=== PATIENT | male | born 1985 | race Caucasian/White ===

== ENCOUNTER 2022-05-03 23:56 | Emergency (ER) | payer OTHER ==
[~2022-05-03] VITALS: Ht 182.9 cm; Wt 90.0 kg
[2022-05-04] MEDS ORDERED: SODIUM CHLORIDE 0.9% 1,000 ML IV ONE (00:15)
[2022-05-04] MEDS ORDERED: LEVETIRACETAM 500MG TABLET PO ONE (00:15)
[2022-05-04 00:26] LABS: BASOPHILS % 0.7 % (0.0-2.0); EOSINOPHILS % 1.3 % (0.0-5.0); HEMOGLOBIN. 15.3 g/dL (14.0-18.0); LYMPHOCYTES % 27.8 % (20.0-50.0); MEAN CORPUSCULAR HEMOGLOBIN 30.6 pg (28.0-32.0); MEAN CORPUSCULAR VOLUME 89.8 fL (80.0-94.0); MEAN PLATELET VOLUME 7.6 fl (7.4-10.4); MONOCYTES % 9.6 % (2.0-8.0); NEUTROPHILS % 60.6 % (40.0-76.0); PLATELET 260 x1000/uL (130-400); RED BLOOD CELL COUNT 5.01 mill/uL (4.7-6.1); RED CELL DISTRIBUTION WIDTH 12.7 % (11.6-14.6)
[2022-05-04 00:35] LABS: CHLORIDE 103 mEq/L (98-107)
[2022-05-04 00:44] LABS: ETHANOL BLOOD < 10 mg/dL
[2022-05-04 02:26] VITALS: BP 121/74
== END 2022-05-04 02:45 | disposition home or self-care (01) ==
LOC: ER 05-04 00:28
DX: G40.909 Epilepsy, unspecified, not intractable, without status epilepticus (principal); R09.02 Hypoxemia; R00.0 Tachycardia, unspecified; R03.0 Elevated blood-pressure reading, without diagnosis of hypertension; R94.31 Abnormal electrocardiogram [ECG] [EKG]
CPT/HCPCS: 36415; 80053; 80320; 84484; 85025; 93005; 96360; 99284; J7030; G0480

== ENCOUNTER 2022-12-23 06:31 | Inpatient (IN) | payer MEDICAID, OTHER ==
[~2022-12-23] VITALS: Ht 177.8 cm; Wt 102.1 kg
[2022-12-23] MEDS ORDERED: ONDANSETRON HCL 4MG/2ML INJ IV STA (09:57)
[2022-12-23] MEDS ORDERED: SODIUM CHLORIDE 0.9% 1,000 ML IV ONE (10:00)
[2022-12-23] MEDS ORDERED: IBUPROFEN 600MG TABLET PO ONE (10:00)
[2022-12-23 10:55] LABS: HEMOGLOBIN. 16.7 g/dL (14.0-18.0); MEAN CORPUSCULAR HEMOGLOBIN 30.1 pg (28.0-32.0); MEAN PLATELET VOLUME 7.8 fl (7.4-10.4); PLATELET 279 x1000/uL (130-400); RED BLOOD CELL COUNT 5.55 mill/uL (4.7-6.1); RED CELL DISTRIBUTION WIDTH 13.4 % (11.6-14.6)
[2022-12-23 11:01] LABS: CHLORIDE 102 mEq/L (98-107)
[2022-12-23 12:05] LABS: PLATELET ESTIMATE NORMAL
[2022-12-23] MEDS ORDERED: KETOROLAC 30MG/ML VIAL IV NR (13:00)
[2022-12-23] MEDS ORDERED: CEFTRIAXONE 1GM PREMIX 50 ML IV ONE (14:45)
[2022-12-23] MEDS ORDERED: MORPHINE SULFATE 4 MG/ML CPJ (NOT FOR IM USE) IV ONE (14:45)
[2022-12-23] MEDS ORDERED: FAMOTIDINE 20MG/2ML VIAL IV ONE (14:45)
[2022-12-23 16:02] LABS: CLARITY URINE TURBID (CLEAR); COLOR URINE YELLOW (YELLOW); KETONES URINE TRACE (NEGATIVE); LEUKOCYTE ESTERASE URINE NEGATIVE (NEGATIVE); NITRITE URINE NEGATIVE (NEGATIVE); OCCULT BLOOD URINE NEGATIVE (NEGATIVE); PH URINE 5.5 (4.5-8.0); PROTEIN URINE NEGATIVE (NEGATIVE); SPECIFIC GRAVITY URINE 1.028 (1.005-1.030); UROBILINOGEN URINE 0.2 E.U./dL (0.2-1.0)
[2022-12-23] MEDS ORDERED: ACETAMINOPHEN 325MG TABLET PO NR (17:00)
[2022-12-23] MEDS ORDERED: OSELTAMIVIR 75MG CAPSULE PO ONE (18:45)
[2022-12-23] MEDS ORDERED: MAGNESIUM/ALUMINUM HYDROXIDE/SIMETHICONE 30ML UDC PO PRN (19:00)
[2022-12-23] MEDS ORDERED: ONDANSETRON HCL 4MG/2ML INJ IV PRN (19:00)
[2022-12-23] MEDS ORDERED: SODIUM CHLORIDE 0.9% 1000ML BAG (SEPSIS BOLUS) IV ONE (19:00)
[2022-12-23] MEDS ORDERED: GUAIFENESIN 200MG/10ML SUGAR FREE UDC PO PRN (19:00)
[2022-12-23] MEDS ORDERED: NA PHOS,M-B/NA PHOS,DI-BA ENEMA 118ML PR PRN (19:00)
[2022-12-23] MEDS ORDERED: IPRATROPIUM/ALBUTEROL 0.5-3(2.5)MG/3ML NEB NEB PRN (19:00)
[2022-12-23] MEDS ORDERED: ACETAMINOPHEN 325MG TABLET PO PRN (19:00)
[2022-12-23] MEDS ORDERED: NITROGLYCERIN 0.4MG TABLET SL SL PRN (19:00)
[2022-12-23] MEDS ORDERED: ZOLPIDEM TARTRATE 5MG TABLET PO PRN (19:00)
[2022-12-23] MEDS ORDERED: CLONIDINE 0.1MG TABLET PO PRN (19:00)
[2022-12-23 19:46] LABS: ETHANOL BLOOD < 10 mg/dL; HDL CHOLESTEROL 47 mg/dL (40-59); LDL CHOLESTEROL 214 mg/dL (5-100); T4 FREE 0.98 ng/dL (0.76-1.46); TOTAL IRON BINDING CAPACITY 313 ug/dL (250-450)
[2022-12-23] MEDS ORDERED: AZITHROMYCIN 500 MG in DEXT 5% WATER 250 ML IV SCH (20:00)
[2022-12-23 20:02] LABS: *AMPHETAMINES SCREEN URINE NEGATIVE (NEGATIVE); *BARBITURATES SCREEN URINE NEGATIVE (NEGATIVE); *BENZODIAZEPINES SCREEN URINE NEGATIVE (NEGATIVE); *COCAINE SCREEN URINE NEGATIVE (NEGATIVE); CANNABINOID URINE SCREEN NEGATIVE (NEGATIVE); METHADONE URINE SCREEN NEGATIVE (NEGATIVE); OPIATES URINE SCREEN NEGATIVE (NEGATIVE); PHENCYCLIDINE URINE SCREEN NEGATIVE (NEGATIVE)
[2022-12-23 20:22] LABS: FOLIC ACID (FOLATE) SERUM 16.3 ng/mL (>5.38)
[2022-12-23] MEDS: ENOXAPARIN 40MG/0.4ML SYR SUBCUT SCH (20:56)
[2022-12-23] MEDS: FAMOTIDINE 20MG TABLET PO SCH (21:00)
[2022-12-23] MEDS: ASCORBIC ACID 500 MG TABLET PO SCH (21:00)
[2022-12-23 23:33] VITALS: BP 142/87
[2022-12-23] MEDS: ACETAMINOPHEN 325MG TABLET PO PRN (23:57)
[2022-12-24] VITALS (7 sets, daily range): BP systolic 101–142; BP diastolic 57–87
[2022-12-24] MEDS ORDERED: DIVA-18 MT (04:40)
[2022-12-24] MEDS ORDERED: LEVE500T9 MT (04:40)
[2022-12-24] MEDS: KETOROLAC 15MG/ML VIAL IV PRN ×2 (05:05→11:31)
[2022-12-24 06:23] LABS: BASOPHILS % 0.2 % (0.0-2.0); HEMATOCRIT. 41.4 % (42.0-52.0); HEMOGLOBIN. 14.1 g/dL (14.0-18.0); LYMPHOCYTES % 12.5 % (20.0-50.0); MEAN CORPUSCULAR HEMOGLOBIN 30.6 pg (28.0-32.0); MEAN CORPUSCULAR VOLUME 90.1 fL (80.0-94.0); MEAN PLATELET VOLUME 7.6 fl (7.4-10.4); MONOCYTES % 9.4 % (2.0-8.0); NEUTROPHILS % 77.9 % (40.0-76.0); PLATELET 199 x1000/uL (130-400); RED CELL DISTRIBUTION WIDTH 13.1 % (11.6-14.6)
[2022-12-24 07:04] LABS: HEPATITIS B SURFACE ANTIGEN NEGATIVE
[2022-12-24] MEDS: LEVETIRACETAM 250MG TABLET PO SCH ×2 (08:54→20:48)
[2022-12-24] MEDS: DOCUSATE SODIUM 100MG CAPSULE PO PRN ×2 (08:54→16:40)
[2022-12-24] MEDS: FAMOTIDINE 20MG TABLET PO SCH ×2 (08:55→20:47)
[2022-12-24] MEDS: ASCORBIC ACID 500 MG TABLET PO SCH ×2 (08:55→20:48)
[2022-12-24] MEDS: ZINC SULFATE 220 MG ( 50 ) CAPSULE PO SCH (08:55)
[2022-12-24] MEDS ORDERED: PNEUMOCOCCAL 23-VAL P-SAC VAC 0.5 ML IM ONE (09:00)
[2022-12-24] MEDS ORDERED: INFLUENZA VACCINE 05/PF 0.5 ML SYRINGE IM ONE (09:00)
[2022-12-24] MEDS: ACETAMINOPHEN 325MG TABLET PO PRN (09:02)
[2022-12-24] MEDS: VALPROIC ACID 250MG CAPSULE PO SCH ×2 (09:03→20:47)
[2022-12-24 10:48] LABS: CHLORIDE 106 mEq/L (98-107)
[2022-12-24 11:07] LABS: PHOSPHORUS 2.7 mg/dL (2.5-4.9)
[2022-12-24] MEDS: DEXAMETHASONE 4MG TABLET PO SCH (11:31)
[2022-12-24] MEDS ORDERED: CEFTRIAXONE 1,000 MG in DEXTROSE 5% WATER 50 ML IV SCH (16:00)
[2022-12-24] MEDS: CEFTRIAXONE 1,000 MG in DEXTROSE 5% WATER 50 ML IV SCH (16:46)
[2022-12-24] MEDS: AZITHROMYCIN 500 MG in DEXT 5% WATER 250 ML IV SCH (18:11)
[2022-12-24] MEDS: ENOXAPARIN 40MG/0.4ML SYR SUBCUT SCH (20:16)
[2022-12-25] VITALS: BP 142/84
[2022-12-25 04:04] VITALS: BP 112/70
[2022-12-25 08:00] VITALS: BP 108/69
[2022-12-25] MEDS: VALPROIC ACID 250MG CAPSULE PO SCH ×2 (09:12→21:31)
[2022-12-25] MEDS: LEVETIRACETAM 250MG TABLET PO SCH ×2 (09:12→21:31)
[2022-12-25] MEDS: DEXAMETHASONE 4MG TABLET PO SCH (09:12)
[2022-12-25] MEDS: ASCORBIC ACID 500 MG TABLET PO SCH ×2 (09:12→21:32)
[2022-12-25] MEDS: FAMOTIDINE 20MG TABLET PO SCH ×2 (09:12→21:31)
[2022-12-25] MEDS: ZINC SULFATE 220 MG ( 50 ) CAPSULE PO SCH (09:12)
[2022-12-25 12:00] VITALS: BP 132/73
[2022-12-25 16:23] VITALS: BP 129/67
[2022-12-25] MEDS: CEFTRIAXONE 1,000 MG in DEXTROSE 5% WATER 50 ML IV SCH (16:49)
[2022-12-25] MEDS: AZITHROMYCIN 500 MG in DEXT 5% WATER 250 ML IV SCH (17:45)
[2022-12-25] MEDS: ENOXAPARIN 30MG/0.3ML SYR SUBCUT SCH (17:45)
[2022-12-25 19:30] VITALS: BP 122/77
[2022-12-26] VITALS: BP 130/84
[2022-12-26 04:00] VITALS: BP 127/77
[2022-12-26] MEDS: ENOXAPARIN 30MG/0.3ML SYR SUBCUT SCH (05:42)
[2022-12-26 08:00] VITALS: BP 134/81
[2022-12-26] MEDS ORDERED: AMOX1TAB16 MT (08:14)
[2022-12-26] MEDS: DOCUSATE SODIUM 100MG CAPSULE PO PRN (08:59)
[2022-12-26] MEDS: LEVETIRACETAM 250MG TABLET PO SCH (08:59)
[2022-12-26] MEDS: ASCORBIC ACID 500 MG TABLET PO SCH (08:59)
[2022-12-26] MEDS: VALPROIC ACID 250MG CAPSULE PO SCH (08:59)
[2022-12-26] MEDS: FAMOTIDINE 20MG TABLET PO SCH (08:59)
[2022-12-26] MEDS: ZINC SULFATE 220 MG ( 50 ) CAPSULE PO SCH (08:59)
[2022-12-26] MEDS: DEXAMETHASONE 4MG TABLET PO SCH (09:00)
[2022-12-26] MEDS ORDERED: FAMOTIDINE 20MG TABLET PO SCH (09:00)
[2022-12-26 10:22] VITALS: BP 134/81
== END 2022-12-26 12:32 | disposition home or self-care (01) | DRG 720 ==
LOC: ER 06:31 → MICUSO 18:40 → EDBEDREQTM 18:42 → EDBEDREQ 18:42 → 3WST 23:23
PROVIDERS: ADMIT Internal Medicine; ATTEND Internal Medicine
DX: A41.9 Sepsis, unspecified organism (principal); E78.5 Hyperlipidemia, unspecified; G40.909 Epilepsy, unspecified, not intractable, without status epilepticus; Z20.822 Contact with and (suspected) exposure to COVID-19; R10.84 Generalized abdominal pain; R73.9 Hyperglycemia, unspecified; Z79.899 Other long term (current) drug therapy; Z82.49 Family history of ischemic heart disease and other diseases of the circulatory system; J02.9 Acute pharyngitis, unspecified
CPT/HCPCS: 36415; 71045; 74176; 80053; 80061; 80305; 80320; 81003; 82607; 82746; 83036; 83540; 83550; 83605; 83735; 84100; 84145; 84439; 84443; 85025; 86803; 87070; 87340; 87426; 87430; 87804; 90686; 90732; 93005; 93306; 93970; 99291; C9803; J0456; J0696; J1650; J1885; J2270; J2405; J3490; J7030; J7060; J8540; G0480

== ENCOUNTER 2023-08-04 19:05 | Emergency (ER) | payer MEDICAID ==
[~2023-08-04] VITALS: Ht 182.9 cm; Wt 92.6 kg
[~2023-08-04 19:05] MED LIST: AMOX1TAB16 MT; DIVA-18 MT; LEVE500T9 MT
[2023-08-04 19:15] VITALS: BP 138/107; O2SAT 95
[2023-08-04] MEDS ORDERED: ONDANSETRON HCL 4MG/2ML INJ IV STA (19:26)
[2023-08-04] MEDS ORDERED: SODIUM CHLORIDE 0.9% 1,000 ML IV ONE (19:30)
[2023-08-04 19:51] LABS: BASOPHILS % 0.6 % (0.0-2.0); EOSINOPHILS % 2.5 % (0.0-5.0); HEMATOCRIT. 49.5 % (42.0-52.0); HEMOGLOBIN. 16.8 g/dL (14.0-18.0); LYMPHOCYTES % 36.1 % (20.0-50.0); MEAN CORPUSCULAR VOLUME 88.4 fL (80.0-94.0); MEAN PLATELET VOLUME 7.5 fl (7.4-10.4); MONOCYTES % 9.2 % (2.0-8.0); NEUTROPHILS % 51.6 % (40.0-76.0); PLATELET 276 x1000/uL (130-400); RED CELL DISTRIBUTION WIDTH 12.7 % (11.6-14.6); WHITE BLOOD COUNT 6.2 x1000/uL (4.5-11.0)
[2023-08-04 19:55] LABS: DIFFERENTIAL COMMENT 1
[2023-08-04 19:57] LABS: CHLORIDE 102 mEq/L (98-107); INDEX HEMOLYSI 1 (1-3); INDEX ICTERIC 1 (1-4); INDEX LIPEMIC 1 (1-3); POTASSIUM 4.2 mEq/L (3.5-5.1); SODIUM 138 mEq/L (136-145)
[2023-08-04 20:06] LABS: ALANINE AMINOTRANSFERASE 69 IU/L (13-61); ALBUMIN 4.3 g/dL (3.4-5.0); ASPARTATE AMINOTRANSFERASE 34 IU/L (15-37); BILIRUBIN TOTAL 0.4 mg/dL (0.1-1.0); CALCIUM 10.1 mg/dL (8.5-10.1); CARBON DIOXIDE 30 mEq/L (21-32); CREATININE 1.1 mg/dL (0.6-1.3); GLUCOSE 101 mg/dL (70-105); PROTEIN TOTAL 8.4 g/dL (6.0-8.3); UREA NITROGEN BLOOD 17 mg/dL (7-21)
[2023-08-04 20:12] LABS: VALPROIC ACID < 3.0 ug/mL (50-100)
[2023-08-04 22:22] LABS: CLARITY URINE TURBID (CLEAR); COLOR URINE YELLOW (YELLOW); GLUCOSE URINE NEGATIVE (NEGATIVE); KETONES URINE NEGATIVE (NEGATIVE); LEUKOCYTE ESTERASE URINE NEGATIVE (NEGATIVE); NITRITE URINE NEGATIVE (NEGATIVE); OCCULT BLOOD URINE NEGATIVE (NEGATIVE); PH URINE 7.5 (4.5-8.0); PROTEIN URINE NEGATIVE (NEGATIVE); SPECIFIC GRAVITY URINE 1.019 (1.005-1.030); UROBILINOGEN URINE 0.2 E.U./dL (0.2-1.0)
[2023-08-04 22:25] LABS: BACTERIA URINE NONE SEEN; RBC URINE NONE SEEN /hpf (0-2); YEAST URINE NONE SEEN
[2023-08-04 22:49] LABS: SQUAMOUS EPITHELIAL CELL URINE RARE /lpf (RARE/1+)
[2023-08-04 22:50] LABS: AMORPHOUS SEDIMENT URINE 2+ /lpf; WBC URINE 0-2 /hpf (0-2)
[2023-08-05] MEDS ORDERED: ONDA4TAB50 MT (00:14)
[2023-08-05] MEDS ORDERED: OMEP40CA20 MT (00:14)
[2023-08-05] MEDS ORDERED: LEVETIRACETAM 500MG PREMIX 100 ML IV ONE (00:15)
[2023-08-05] MEDS ORDERED: VALPROATE SODIUM 1,000 MG in DEXT 5% WATER 100 ML IV ONE (00:15)
[2023-08-05] MEDS ORDERED: ONDANSETRON HCL 4MG/2ML INJ IV NR (00:30)
[2023-08-05 03:55] VITALS: PULSE 84; RESP 16; TEMP 98.2
== END 2023-08-05 03:57 | disposition home or self-care (01) ==
LOC: ER 19:05
DX: G40.909 Epilepsy, unspecified, not intractable, without status epilepticus (principal); R11.2 Nausea with vomiting, unspecified; R10.9 Unspecified abdominal pain
CPT/HCPCS: 80053; 81003; 83690; 80165; 85025; 36415; 74176; 93005; 99285; 96367; 96365; 96375; J7030; J1953; J2405; J3490; J7060; Z7610 ×2

== ENCOUNTER 2024-12-08 01:38 | Emergency (ER) | payer MEDICAID, OTHER ==
[~2024-12-08] VITALS: Ht 182.9 cm; Wt 82.0 kg
[~2024-12-08 01:38] MED LIST changes: +OMEP40CA20 MT; +ONDA4TAB50 MT
[2024-12-08 01:40] VITALS: O2SAT 95
[2024-12-08] MEDS: SODIUM CHLORIDE 0.9% 1,000 ML IV ONE ×2 (02:34)
[2024-12-08] MEDS: ACETAMINOPHEN 325MG TABLET PO STA (02:34)
[2024-12-08 03:06] LABS: BASOPHILS % 0.2 % (0.0-2.0); EOSINOPHILS % 0.5 % (0.0-5.0); HEMATOCRIT. 45.1 % (42.0-52.0); HEMOGLOBIN. 15.3 g/dL (14.0-18.0); LYMPHOCYTES % 9.5 % (20.0-50.0); MEAN CORPUSCULAR HEMOGLOBIN 30.3 pg (28.0-32.0); MEAN CORPUSCULAR HGB CONC 33.8 g/dL (31.0-37.0); MEAN CORPUSCULAR VOLUME 89.5 fL (80.0-94.0); MEAN PLATELET VOLUME 7.9 fl (7.4-10.4); MONOCYTES % 8.4 % (2.0-8.0); NEUTROPHILS % 81.4 % (40.0-76.0); PLATELET 212 x1000/uL (130-400); RED BLOOD CELL COUNT 5.04 mill/uL (4.7-6.1); RED CELL DISTRIBUTION WIDTH 12.9 % (11.6-14.6); WHITE BLOOD COUNT 10.7 x1000/uL (4.5-11.0)
[2024-12-08] MEDS: KETOROLAC 15MG/ML VIAL IV ONE (03:18)
[2024-12-08 03:26] LABS: CHLORIDE 105 mEq/L (98-107); POTASSIUM 3.8 mEq/L (3.5-5.1); SODIUM 141 mEq/L (136-145)
[2024-12-08 03:27] LABS: CALCIUM 9.2 mg/dL (8.7-10.4); CARBON DIOXIDE 26 mEq/L (21-32)
[2024-12-08 03:32] LABS: CREATININE 1.1 mg/dL (0.6-1.3); GLUCOSE 123 mg/dL (70-105); UREA NITROGEN BLOOD 12 mg/dL (9-23)
[2024-12-08 08:42] LABS: CLARITY URINE CLEAR (CLEAR); COLOR URINE YELLOW (YELLOW); GLUCOSE URINE NEGATIVE (NEGATIVE); KETONES URINE NEGATIVE (NEGATIVE); LEUKOCYTE ESTERASE URINE NEGATIVE (NEGATIVE); NITRITE URINE NEGATIVE (NEGATIVE); OCCULT BLOOD URINE NEGATIVE (NEGATIVE); PH URINE 7.5 (4.5-8.0); PROTEIN URINE NEGATIVE (NEGATIVE); SPECIFIC GRAVITY URINE 1.021 (1.005-1.030)
[2024-12-08] MEDS: ACETAMINOPHEN 325MG TABLET PO SCH (08:53)
[2024-12-08 09:30] VITALS: BP 131/77; PULSE 98; RESP 28; TEMP 37.1; O2SAT 96
[2024-12-08] MEDS ORDERED: AMOX-494 MT (09:35)
[2024-12-08] MEDS ORDERED: IBUP-2028 MT (09:35)
== END 2024-12-08 09:53 | disposition home or self-care (01) ==
LOC: ER 01:38
DX: R50.9 Fever, unspecified (principal); R65.10 Systemic inflammatory response syndrome (SIRS) of non-infectious origin without acute organ dysfunction; Z20.822 Contact with and (suspected) exposure to COVID-19; Z79.899 Other long term (current) drug therapy; Z86.59 Personal history of other mental and behavioral disorders
CPT/HCPCS: 80048; 81003; 87430; 83605; 85025; 87040; 87070; 36415; 71045; 96361; 96374; 99285; 87426; J1885; J7030; Z7610; 99291

== ENCOUNTER 2025-02-22 16:33 | Emergency (ER) | payer MEDICAID ==
[~2025-02-22] VITALS: Ht 180.3 cm; Wt 92.0 kg
[~2025-02-22 16:33] MED LIST changes: +AMOX-494 MT; +IBUP-2028 MT
[2025-02-22 16:35] VITALS: O2SAT 97
[2025-02-22 16:45] VITALS: BP 142/84; PULSE 86; RESP 16; TEMP 36.8; O2SAT 96
[2025-02-22] MEDS ORDERED: P20 MT (20:37)
[2025-02-22] MEDS ORDERED: CLIN-194 MT (20:38)
[2025-02-22] MEDS: KETOROLAC 30MG/ML VIAL IM STA (20:44)
[2025-02-22] MEDS: PREDNISONE 20MG TABLET PO ONE (20:45)
== END 2025-02-22 20:59 | disposition home or self-care (01) ==
LOC: ER 16:33
DX: J02.9 Acute pharyngitis, unspecified (principal); Z79.899 Other long term (current) drug therapy; Z86.59 Personal history of other mental and behavioral disorders
CPT/HCPCS: 99283; 96372; J1885; J7512